=== PATIENT | male | born 1950 | race Caucasian/White ===

== ENCOUNTER 2018-07-04 14:14 | Outpatient (CLI) | payer OTHER | END 2018-07-04 14:59 | disposition home or self-care (01) | LOC: EKG 14:14 | DX: Z13.6 Encounter for screening for cardiovascular disorders (principal); Z01.810 Encounter for preprocedural cardiovascular examination ==

== ENCOUNTER 2018-07-13 09:30 | Inpatient (IN) | payer OTHER ==
[~2018-07-13] VITALS: Ht 185.4 cm; Wt 83.9 kg
[2018-07-13] MEDS ORDERED: METROPOLO PO (11:03)
[2018-07-13] MEDS ORDERED: OXYBUTYNIN PO (11:03)
[2018-07-13] MEDS ORDERED: ATORVASTATIN CA20 MG PO (11:04)
[2018-07-13] MEDS ORDERED: LISINOPRIL5 MG PO (11:05)
[2018-07-19] MEDS ORDERED: METOPROLOL SUCC25 MG PO (10:09)
[2018-07-19] MEDS ORDERED: OXYBUTYNIN CHLO10 MG PO (10:09)
== END 2018-07-20 09:40 | disposition home or self-care (01) | DRG 708 ==
LOC: SURG 09:30 → SURH 07-18 05:35 → O/R 07-18 05:35 → SURG 07-18 07:00 → SURH 07-18 16:18
PROVIDERS: ADMIT Urology
PROC: 0VT30ZZ Resection of Bilateral Seminal Vesicles, Open Approach (ICD-10-PCS; 2018-07-18)
PROC: 0YQA0ZZ Repair Bilateral Inguinal Region, Open Approach (ICD-10-PCS; 2018-07-18)
PROC: 0VT00ZZ Resection of Prostate, Open Approach (ICD-10-PCS; principal; 2018-07-18 07:00)
DX: C61 Malignant neoplasm of prostate (principal); K40.20 Bilateral inguinal hernia, without obstruction or gangrene, not specified as recurrent; N49.0 Inflammatory disorders of seminal vesicle